=== PATIENT | female | born 1970 | race Caucasian/White ===

== ENCOUNTER → 2017-10-15 | Outpatient (CLI) | payer OTHER ==
[~2017-10-15] MED LIST: ALBU8.5H IH; DULO40CA2 PO; DULO60CA56 PO; LEV112 PO; MULT-1354 PO
[2017-10-15 10:08] LABS: PLATELET COUNT, AUTOMATED 308 K/uL (150-450)
[2017-10-15 10:26] LABS: LDL CHOLESTEROL 107 mg/dl
== END ==
LOC: LAB 09:09
PROVIDERS: ATTEND Emergency Medicine
DX: E03.9 Hypothyroidism, unspecified (principal); M19.90 Unspecified osteoarthritis, unspecified site; E66.9 Obesity, unspecified
CPT/HCPCS: 36415; 82040; 82247; 82310; 82374; 82435; 82465; 82565; 82947; 83718; 84075; 84132; 84155; 84295; 84443; 84450; 84460; 84478; 84520; 85025

== ENCOUNTER → 2018-08-01 | Outpatient (CLI) | payer OTHER ==
[~2018-08-01] MED LIST changes: +FLU60VIA41 IM; +LEVO-3 PO; +PHEN1CPM PO
== END ==
LOC: LAB 09:13
PROVIDERS: ATTEND Emergency Medicine
DX: R20.8 Other disturbances of skin sensation (principal); E03.9 Hypothyroidism, unspecified
CPT/HCPCS: 36415; 82607; 84443

== ENCOUNTER → 2018-10-31 | Outpatient (CLI) | payer OTHER ==
[~2018-10-31] MED LIST changes: +LEVO75TA73 PO; +LEVO88TA45 PO
== END ==
LOC: LAB 12:04
PROVIDERS: ATTEND Emergency Medicine
DX: E03.9 Hypothyroidism, unspecified (principal)
CPT/HCPCS: 36415; 84443

== ENCOUNTER → 2019-01-24 | Outpatient (CLI) | payer OTHER | LOC: LAB 14:17 | PROVIDERS: ATTEND Emergency Medicine | DX: E03.9 Hypothyroidism, unspecified (principal) | CPT/HCPCS: 36415; 84443 ==